=== PATIENT | female | born 2000 | race Caucasian/White ===

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

== ENCOUNTER 2024-06-23 07:58 | Emergency (ER) | payer SELFPAY ==
--- OUTSIDE RECORDS SUMMARY | 2024-06-23 08:00 | XMS REPORT | Continuity of Care Document ---
Author Name Unknown Address [address] [place] [address] [facility] thconnect Address [address] [place] [address] Care Team Providers Care Crisis Specialist Name Role Phone SALOMON Attending Clinician Unavaila ble Shield Attending Clinician Unavailable SALOMON Admitting Clinician Unavaila ble Shield Admitting Clinician Unavailable Payers Payer Name Policy Type Policy Number Effective Date Expirati on Date Source [place] [id number] 2018 00:00:00 [place] [id number] 2016 00:00:00 Encounters Start Date/Time End Date/Time Encounter Type Admission Type Attending Clinicians Care Facility Care Department Encounter ID Source 2022-02-11 05:01:00 2022-02-11 05:01:00 Outpatient [facility]EE[facility] DAVE [id number] Alexandra da [facility] Out[facility] 2020-06-18 02:32:00 2020-06-18 02:32:00 Outpatient [facility] [id number] [facility]
[2024-06-23 08:52] LABS: Absolute Basophils 0.2 K/uL (0-0.5); Absolute Eosinophils 0.3 K/uL (0-0.5); Absolute Lymphocytes (CBC) 1.9 K/uL (0.7-4.9); Absolute Monocytes 0.4 K/uL (0.1-1.3); Basophils % 2.4 % (0-1.3); Eosinophils % 4.9 % (0-4.4); Hematocrit 41.6 % (36.0-45.0); Hemoglobin 13.9 g/dL (12.0-15.0); Lymphocytes % 27.4 % (15.3-44.8); MCHC 33.5 g/dL (32.0-36.0); MCV 92.7 fL (80-100); MPV 9.1 fL (7.6-11.3); Monocytes % 6.2 % (3.3-12.3); Neutrophils % 59.1 % (41.7-73.7); Nucleated Red Blood Cells % 0.1 % (0-0); Platelets 232 thou/uL (152-406); RBC Red Blood Cell Count 4.49 M/uL (3.86-4.86); Red Cell Distribution Width 13.1 % (12.1-15.2)
[2024-06-23 09:02] LABS: Anion Gap 6.7 mEq/L (5.0-15.0); Potassium 3.7 mEq/L (3.5-5.1)
--- NOTE | 2024-06-23 10:07 | ER ---
Nurse's Notes [facility] Name: Anh Cantu Age: 23 yrs Sex: Female : 2000 Arrival Date: 06/23/2024 Time: 07:58 Bed 13 Private MD: Diagnosis: Encounter for test, result negative;Abdominal pain, unspecified Presentation: 06/23 08:11 Chief complaint: Patient states: Would like a blood test, urine ll1 tests have been negative. States her breast feel tender, stomach pooch, cravings, nausea for at least 1 month. Coronavirus screen: Client denies travel out of the [place] in the last 14 days. At this time, the client does not indicate any symptoms associated with coronavirus-19. Ebola Screen: Patient denies travel to an Ebola-affected area in the 21 days before illness onset. Initial Sepsis Screen: Does the patient meet any 2 criteria? No. Patient's initial sepsis screen is negative. Does the patient have a suspected source of infection? No. Patient's initial sepsis screen is negative. Risk Assessment: Do you want to hurt yourself or someone else? Patient reports no desire to harm self or others. Onset of symptoms was May 23, 2024. 08:11 Method Of Arrival: Ambulatory ll1 08:11 Acuity: BANDAR 4 ll1 Triage Assessment: 08:14 General: Appears in no apparent distress. Behavior is calm, cooperative, appropriate ll1 for age. General: Reports Wants a blood test. Pain: Denies pain. Neuro: No deficits noted. Cardiovascular: No deficits noted. 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 - Infectious Disease History:: Denies. - Social history:: Smoking status: Patient denies any tobacco usage or history of. Screenin:[address] [facility] ED Fall Risk Assessment (Adult) History of falling in the last 3 months, ll1 including since admission No falls in past 3 months (0 pts) Confusion or Disorientation No (0 pts) Intoxicated or Sedated No (0 pts) Impaired Gait No (0 pts) Mobility Assist Device Used No (0 pt) Altered Elimination No (0 pt) Score/Fall Risk Level 0 - 2 = Low Risk Maintained a safe environment, Hourly rounding (assess needs \T\ fall precautionary measures) done. Abuse screen: Denies threats or abuse. Nutritional screening: No deficits noted. Tuberculosis screening: No symptoms or risk factors identified. Assessment: 08:45 Reassessment: No changes from previously documented assessment. Patient and/or family ll1 updated on plan of care and expected duration. Pain level reassessed. Patient is alert, oriented x 3, equal unlabored respirations, skin warm/dry/pink. 09:44 Reassessment: No changes from previously documented assessment. Patient and/or family ll1 updated on plan of care and expected duration. Pain level reassessed. Patient is alert, oriented x 3, equal unlabored respirations, skin warm/dry/pink. 09:59 Reassessment: No changes from previously documented assessment. Dr. Ritter at . ll1 10:15 Reassessment: Patient and/or family updated on plan of care and expected duration. Pain rs5 level reassessed. Patient is alert, oriented x 3, equal unlabored respirations, skin warm/dry/pink. Vital Signs: 08:11 BP 116 / 73; Pulse 72; Resp 16; Pulse Ox 100% ; Pain 0/10; ll1 10:15 BP 121 / 77; Pulse 74; Resp 17; Pulse Ox 99% on R/A; rs5 08:11 Pain Scale: Adult ll1 ED Course: 08:02 Patient arrived in ED. mg5 08:05 Arm band placed on Patient placed in an exam room, on a stretcher. ll1 08:14 Triage completed. ll1 08:21 Deandre Bowens, RN is Primary Nurse. ll1 08:24 Patient has correct armband on for positive identification. Provided Education on: ER ll1 procedures and process. Cardiac monitoring not applicable on this patient. 08:31 Blanco Ritter MD is Attending Physician. bo1 08:40 Inserted saline lock: 22 gauge in right antecubital area, using aseptic technique. ll1 Blood collected. Flushed with 10 mL NS. 09:20 Patient placed in an exam room, on a stretcher. ll1 10:14 No provider procedures requiring assistance completed. IV discontinued, intact, rs5 bleeding controlled, No redness/swelling at site. Pressure dressing applied. Administered Medications: No medications were administered Medication: 08:24 VIS not applicable for this client. ll1 Outcome: 10:06 Discharge ordered by . bo1 10:14 Discharged to home ambulatory, with family, rs5 10:14 Condition: stable 10:14 Discharge instructions given to patient, family, Instructed on discharge instructions, follow up and referral plans. Demonstrated understanding of instructions, follow-up care, 10:22 Patient left the ED. ll1 Signatures: Deandre Bowens RN RN ll1 Aashish Vaughan RN RN rs5 Sarah Vallejo mg5 Riya, MD JANI Simeon bo1
--- NOTE | 2024-06-23 10:07 | EDPHYS ---
Physician Documentation [facility] Name: Anh Cantu Age: 23 yrs Sex: Female : 2000 Arrival Date: 06/23/2024 Time: 07:58 Bed 13 Private MD: ED Physician Blanco Ritter HPI: 06/23 08:34 This 23 yrs old Black Female presents to ER via Ambulatory with complaints of PRG TEST. bo1 08:34 Missed cycle in May then early menses on June 05. Light flow but dark blood. Now bo1 with abd pain, "swollen" abd and hungry. No bleeding. No dyspareunia. Onset: The symptoms/episode began/occurred gradually, 1 week(s) ago. 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 - Infectious Disease History:: Denies. - Social history:: Smoking status: Patient denies any tobacco usage or history of. ROS: 10:13 Constitutional: Negative for fever, chills, and weight loss bo1 10:13 Cardiovascular: Negative for chest pain, 10:13 Respiratory: Negative for shortness of breath, 10:13 Abdomen/GI: Positive for abdominal pain, "sensitivity to wearing jeans or other tight fitting clothing", Negative for abdominal distension, 10:13 : Positive for missed period, Negative for urinary symptoms, hematuria, vaginal bleeding, Exam: 10:03 Constitutional: This is a well developed, well nourished patient who is awake, alert, bo1 and in no acute distress. 10:14 Eyes: Sclera: no appreciated abnormality, bo1 10:14 Cardiovascular: Rate: normal, Pulses: no pulse deficits are appreciated, 10:14 Respiratory: the patient does not display signs of respiratory distress, Respirations: normal, Breath sounds: are clear throughout, 10:14 Abdomen/GI: Inspection: abdomen appears normal, Palpation: abdomen is soft and non-tender, rebound tenderness, is not appreciated, 10:14 Skin: Exam negative for rash, Vital Signs: 08:11 BP 116 / 73; Pulse 72; Resp 16; Pulse Ox 100% ; Pain 0/10; ll1 10:15 BP 121 / 77; Pulse 74; Resp 17; Pulse Ox 99% on R/A; rs5 08:11 Pain Scale: Adult ll1 MDM: 08:31 Medical Screening Exam initiated bo1 10:03 Differential Diagnosis vs non. Ovarian cyst. Missed cycle. Ovulation bo1 failure.. Data reviewed: vital signs, lab test result(s), CBC, electrolytes, Serum preg test: Negative. ED course: Pt is discharged in stable condition. Missed cycle. Not . Refused offer for imaging. 10:15 ED course: Pt is very disappointed with the negative result. Tearful. Mother bo1 in law present to reassure the pt. F/U with KILN TESTER for conception planning etc. 06/23 08:32 Order name: CBC with Diff; Complete Time: 09:51 bo1 06/23 08:32 Order name: Abo/rh Typing; Complete Time: 09:51 bo1 06/23 08:32 Order name: Basic Metabolic Panel; Complete Time: 09:51 bo1 06/23 08:32 Order name: Test, Serum; Complete Time: 09:51 bo1 06/23 08:32 Order name: IV Saline Lock; Complete Time: 08:33 bo1 06/23 08:32 Order name: Labs collected and sent; Complete Time: 08:33 bo1 06/23 08:32 Order name: NPO; Complete Time: 08:33 bo1 Administered Medications: No medications were administered Disposition Summary: 06/23/24 10:06 Discharge Ordered Notes: Location: Home bo1 Problem: new bo1 Symptoms: are unchanged bo1 Condition: Stable bo1 Diagnosis - Encounter for test, result negative bo1 - Abdominal pain, unspecified bo1 Followup: bo1 - With: Private Physician - When: As needed - Reason: Recheck today's complaints, Continuance of care Discharge Instructions: - Discharge Summary Sheet bo1 - Abdominal Pain, Adult bo1 Forms: - Medication Reconciliation Form bo1 - Antibiotic Education bo1 - Prescription Opioid Use bo1 - Patient Portal Instructions bo1 - Leadership Thank You Letter bo1 Signatures: Dispatcher [employer] Deandre Barba RN RN ll1 OeiBlanco MD MD bo1 Corrections: (The following items were deleted from the chart) 08:33 08:33 Urinalysis+U.LAB.BRZ ordered. EDMS EDMS
[2024-06-23 10:47] VITALS: BP 121/77; O2SAT 99
== END 2024-06-23 10:22 | disposition home or self-care (01) ==
LOC: ER 07:58
DX: Z32.02 Encounter for pregnancy test, result negative (principal); R10.9 Unspecified abdominal pain
CPT/HCPCS: 36415; 80048; 84703; 85025; 86900; 86901

== ENCOUNTER 2024-07-05 12:54 | Emergency (ER) | payer SELFPAY ==
--- OUTSIDE RECORDS SUMMARY | 2024-07-05 12:57 | XMS REPORT | Continuity of Care Document ---
Author Name Unknown Address [address] [place] [address] thconnect Address [address] [facility] 1 [address] [place] [address] Care Team Providers Care Batch Attendant Name Role Phone SALOMON Attending Clinician Unavaila alvin Okeefe Attending Clinician Unavailable SALOMON Admitting Clinician Unavaila alvin Okeefe Admitting Clinician Unavailable Payers Payer Name Policy Type Policy Number Effective Date Expirati on Date Source [place] [id number] 2018 00:00:[place] [id number] 2016 00:00:00 Encounters Start Date/Time End Date/Time Encounter Type Admission Type Attending Clinicians Care Facility Care Department Encounter ID Source 2022-02-11 05:01:00 2022-02-11 05:01:00 Outpatient [facility] [id number] Alexandra nay[facility] Out[facility] h Program 2020-06-18 02:32:00 2020-06-18 02:32:00 [facility] [id number] [facility]
[2024-07-05 14:03] LABS: Specific Gravity > 1.030 (1.005-1.030)
[2024-07-05 14:04] LABS: Specific Gravity > 1.030 (1.005-1.030); Sqamous Epithelial <5 /HPF (None Seen); Urine Bacteria <20 /HPF (<20); Urine Bilirubin NEGATIVE (Negative); Urine Blood 3+ (Negative); Urine Clarity Clear (Clear); Urine Color Yellow (Yellow); Urine Culture Reflex Order NOT NEEDED; Urine Glucose NEGATIVE (Negative); Urine Ketones NEGATIVE (Negative); Urine Micro Reflex YN NO BILL MICROSCOPIC; Urine Mucus Slight /HPF (None Seen); Urine Nitrite NEGATIVE (Negative); Urine Protein NEGATIVE (Negative); Urine RBC >50 /HPF (None Seen); Urine Urobilinogen 2+ (Normal); Urine WBC <5 /HPF (<5)
--- NOTE | 2024-07-05 16:05 | RAD REPORT ---
EXAMINATION: US Transvaginal Study Probe CLINICAL INDICATION: Female 23 years old.MARTINA GREENFIELD now believes she is ;Abd pain;Vaginal bleeding Bed Name: 11 TECHNIQUE: Real-time ultrasonography of the pelvis was performed transvaginally. Color and spectral D oppler evaluation of the ovaries was performed. COMPARISON: No prior exam. FINDINGS: UTERUS AND CERVIX: The uterus measures 8.0 cm in length. The uterus is normal. No masses seen The end ometrium is normal except for trace fluid along the mid aspect, measuring 0.2 cm in thickness. RIGHT OVARY: Normal The right ovary measures 3.3 x 1.9 x 3.1 cm. Normal color and spectral Doppler evaluation of the right ovary.. LEFT OVARY: Normal The left ovary measures 3.7 x 2.3 x 3.0 cm. Normal color and spectral Doppler evaluation of the left ovary.. FREE FLUID: Trace free fluid near the right adnexal region. IMPRESSION: No intraparenchymal is observed. Trace nonspecific fluid within the endometrium. Close clin ical follow-up and correlation with serial beta hCG trend is recommended. Trace free pelvic fluid near the right adnexal region, likely physiologic.
--- NOTE | 2024-07-05 16:19 | ER ---
Nurse's Notes [facility] Name: Anh Cantu Age: 23 yrs Sex: Female : 2000 Arrival Date: 07/05/2024 Time: 12:54 Bed 11 Private MD: Diagnosis: Hypomenorrhea Presentation: 07/05 13:23 Chief complaint: Patient states: missed period in oct, had it nov 5, but it was very ko1 light and no cramping, nausea with certain smells, took a test which was negative. Coronavirus screen: At this time, the client does not indicate any symptoms associated with coronavirus-19. Ebola Screen: No symptoms or risks identified at this time. Initial Sepsis Screen: Does the patient meet any 2 criteria? No. Patient's initial sepsis screen is negative. Does the patient have a suspected source of infection? No. Patient's initial sepsis screen is negative. Risk Assessment: Do you want to hurt yourself or someone else? Patient reports no desire to harm self or others. Onset of symptoms is unknown. 13:23 Method Of Arrival: Ambulatory ko1 13:23 Acuity: BANDAR 4 ko1 Triage Assessment: 13:28 General: Appears in no apparent distress. Behavior is calm, cooperative, appropriate ko1 for age. Pain: Complains of pain in right low back. 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 - Infectious Disease History:: Denies. - Social history:: Smoking status: Patient denies any tobacco usage or history of. Screenin:32 [facility] ED Fall Risk Assessment (Adult) History of falling in the last 3 months, ap3 including since admission No falls in past 3 months (0 pts) Confusion or Disorientation No (0 pts) Intoxicated or Sedated No (0 pts) Impaired Gait No (0 pts) Mobility Assist Device Used No (0 pt) Altered Elimination No (0 pt) Score/Fall Risk Level 0 - 2 = Low Risk Oriented to surroundings, Maintained a safe environment, Educated pt \T\ family on fall prevention, incl call for assistance when getting out of bed, Assessed \T\ reinforced patient's understanding of fall precautions, Hourly rounding (assess needs \T\ fall precautionary measures) done, Used ambulatory aids as needed (educated on \T\ assisted with), Used gait belt as appropriate. Abuse screen: Denies threats or abuse. Nutritional screening: No deficits noted. Tuberculosis screening: No symptoms or risk factors identified. Vital Signs: 13:23 BP 130 / 99; Pulse 75; Resp 15; Temp 97; Pulse Ox 100% ; ko1 ED Course: 12:57 Patient arrived in ED. mr 12:58 Payton Briseno PA-C is PHCP. sb4 12:58 Kaleb Cope MD is Attending Physician. sb4 13:28 Triage completed. ko1 13:28 Arm band placed on right wrist. Patient placed in an exam room, on a stretcher, on ko1 pulse oximetry, Patient notified of wait time. 13:53 Test, Urine Sent. bc6 13:53 UAM Sent. bc6 15:19 Lisbeth Hester, RN is Primary Nurse. ap3 15:32 No provider procedures requiring assistance completed. ap3 15:37 Transvaginal Study (probe) In Process Unspecified. EDMS 16:17 Katya Mcnulty MD is Referral Physician. sb4 16:26 Patient has correct armband on for positive identification. Adult w/ patient. Provided ap3 Education on: discharge instructions. 16:26 Patient did not have IV access during this emergency room visit. ap3 Administered Medications: No medications were administered Medication: 15:33 VIS not applicable for this client. ap3 Outcome: 16:18 Discharge ordered by . sb4 16:25 Discharged to home ambulatory, with family, ap3 16:25 Condition: good 16:25 Discharge instructions given to patient, family, Instructed on discharge instructions, follow up and referral plans. Demonstrated understanding of instructions, follow-up care, 16:26 Patient left the ED. ap3 Signatures: Dispatcher [employer] EDIN Katy Green, [facility] Reg mr Lisbeth Hester, RN RN ap3 Didi Tamayo RN RN ko1 Payton Briseno PA-C PA-C sb4 Nereyda Mcgovern bc6
--- NOTE | 2024-07-05 16:19 | EDPHYS ---
Physician Documentation [facility] Name: Anh Cantu Age: 23 yrs Sex: Female : 2000 Arrival Date: 07/05/2024 Time: 12:54 Bed 11 Private MD: ED Physician Kaleb Cope HPI: 07/05 14:50 This 23 yrs old Black Female presents to ER via Ambulatory with complaints of US for sb4 possible . 14:50 patient states that her menstrual cycles have been abnormal the past 2 months, she has sb4 had strange cravings, gained weight, boobs have grown. she has had negative urine tests and serum tests but believes she is . was seen here 2 weeks ago for similar symptoms, offered an ultrasound but declined then. is wanting an ultrasound now. is currently on her menstrual cycle. 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 - Infectious Disease History:: Denies. - Social history:: Smoking status: Patient denies any tobacco usage or history of. ROS: 14:50 Constitutional: Negative for fever, chills, and weight loss, sb4 14:50 : Positive for menstrual abnormality, 14:50 All other systems are negative, Exam: 14:50 Constitutional: This is a well developed, well nourished patient who is awake, alert, sb4 and in no acute distress. Head/Face: Normocephalic, atraumatic. Eyes: Extra-ocular motions intact. Periorbital areas with no swelling, redness, or edema. ENT: Mucous membranes moist. Respiratory: No increased work of breathing, no retractions or nasal flaring. Abdomen/GI: Soft, non-tender, no distension. Skin: Warm, dry with normal turgor. Normal color with no rashes, no lesions, and no evidence of cellulitis. Vital Signs: 13:23 BP 130 / 99; Pulse 75; Resp 15; Temp 97; Pulse Ox 100% ; ko1 MDM: 13:30 Medical Screening Exam initiated sb4 16:27 Data reviewed: vital signs, nurses notes, lab test result(s), radiologic studies, and sb4 as a result, I will discharge patient. Counseling: I had a detailed discussion with the patient and/or guardian regarding the historical points, exam findings, and any diagnostic results supporting the discharge/admit diagnosis, lab results, radiology results, the need for outpatient follow up, an OB/Gyne specialist, to return to the emergency department if symptoms worsen or persist or if there are any questions or concerns that arise at home. 07/05 13:31 Order name: UAM; Complete Time: 14:06 sb4 07/05 13:31 Order name: Test, Urine; Complete Time: 14:06 sb4 07/05 14:40 Order name: Transvaginal Study (probe); Complete Time: 16:05 sb4 Administered Medications: No medications were administered Disposition Summary: 07/05/24 16:18 Discharge Ordered Notes: Location: Home sb4 Problem: an ongoing problem sb4 Symptoms: are unchanged sb4 Condition: Stable sb4 Diagnosis - Hypomenorrhea sb4 Followup: sb4 - With: Katya Mcnulty MD - When: As needed - Reason: Further diagnostic work-up, Recheck today's complaints, Re-evaluation by your physician Discharge Instructions: - Discharge Summary Sheet sb4 - Menstruation sb4 Forms: - Patient Portal Instructions sb4 - Leadership Thank You Letter sb4 Signatures: Dispatcher [employer] Didi Meyer, RN RN Payton Flores PA-C PA-C sb4
[2024-07-05 22:15] VITALS: BP 130/99; TEMP 97; O2SAT 100
== END 2024-07-05 16:26 | disposition home or self-care (01) ==
LOC: ER 12:54
DX: N91.5 Oligomenorrhea, unspecified (principal)
CPT/HCPCS: 76830; 81001; 81025; 99283